=== PATIENT | male | born 1990 | race African-American/Black ===

== ENCOUNTER 2017-09-28 15:46 | Emergency (ER) | payer OTHER ==
[~2017-09-28] VITALS: Ht 188 cm; Wt 85.0 kg
[~2017-09-28 15:46] MED LIST: METO25 PO
[2017-09-28 16:02] VITALS: BP 147/97; PULSE 128; RESP 18; TEMP 98.1; O2SAT 97
[2017-09-28 16:05] VITALS: BP 146/102; PULSE 134; RESP 20; O2SAT 100
[2017-09-28] MEDS ORDERED: SODIUM CHLORIDE 0.9% FLUSH 10 ML FLUSH IVF PRN (16:15)
[2017-09-28] MEDS ORDERED: MORPHINE SULFATE 4 MG/ML INJ IV PUSH ONE (16:15)
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
[2017-09-28] MEDS ORDERED: ONDANSETRON HCL 4 MG/5 ML UDC PO ONE (16:30)
[2017-09-28 16:58] LABS: AUTOMATED NEUTROPHIL # 3.6 TH/MM3 (1.8-7.7); BASOPHIL % 0.2 % (0.0-2.0); EOSINOPHIL % 0.8 % (0.0-4.0); HEMATOCRIT 39.2 % (39.0-51.0); HEMOGLOBIN 13.5 GM/DL (13.0-17.0); LYMPH % 22.2 % (9.0-44.0); LYMPHOCYTE # 1.2 TH/MM3 (1.0-4.8); MEAN CELL VOLUME 71.4 FL (80.0-100.0); MEAN CORPUSCULAR HEMOGLOBIN 24.7 PG (27.0-34.0); MEAN CORPUSCULAR HGB CONC 34.6 % (32.0-36.0); MEAN PLATELET VOLUME 8.5 FL (7.0-11.0); MONO % 9.4 % (0.0-8.0); MONOCYTE # 0.5 TH/MM3 (0-0.9); NEUT % 67.4 % (16.0-70.0); PLATELET COUNT 262 TH/MM3 (150-450); RED BLOOD COUNT 5.49 MIL/MM3 (4.50-5.90); RED CELL DISTRIBUTION WIDTH 13.3 % (11.6-17.2); WHITE BLOOD COUNT 5.4 TH/MM3 (4.0-11.0)
[2017-09-28 17:21] LABS: ALBUMIN 3.8 GM/DL (3.4-5.0); AST (GOT) 18 U/L (15-37); BLOOD UREA NITROGEN 13 MG/DL (7-18); CALCIUM 8.8 MG/DL (8.5-10.1); CHLORIDE 107 MEQ/L (98-107); GLOMERULAR FILTRATION RATE 109 ML/MIN (>89); GLUCOSE,RANDOM 127 MG/DL (74-106); SODIUM (NA) 141 MEQ/L (136-145)
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
[2017-09-28 17:25] LABS: ALKALINE PHOSPHATASE 130 U/L (45-117); ALT (GPT) 29 U/L (12-78); TOTAL BILIRUBIN ADULT 0.6 MG/DL (0.2-1.0); TOTAL PROTEIN 7.3 GM/DL (6.4-8.2)
[2017-09-28 17:34] VITALS: BP 167/88; PULSE 127; RESP 24; O2SAT 97
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
[2017-09-28] MEDS ORDERED: KETOROLAC TROMETHAMINE 30 MG/ML (IVP) VIAL IV PUSH ONE (17:45)
[2017-09-28 18:01] VITALS: BP 157/84; PULSE 121; RESP 16; O2SAT 98
[2017-09-28] MEDS ORDERED: CYCL10TA PO (18:17)
[2017-09-28] MEDS ORDERED: HYDR-3516 PO (18:17)
[2017-09-28] MEDS ORDERED: IBUP-232 PO (18:17)
[2017-09-28 18:23] LABS: BILIRUBIN, URINE NEG (NEG); BLOOD, URINE NEG (NEG); GLUCOSE,URINE NEG (NEG); HYALINE CAST, URINE 135 /lpf (RARE); KETONE, URINE NEG (NEG); MUCUS URINE MOD /lpf (OCC); NITRITE,URINE NEG (NEG); URINE COLOR YELLOW (YELLW/STRAW); URINE LEUKOCYTE ESTERASE NEG (NEG)
[2017-09-28 18:46] VITALS: BP 138/82; PULSE 122; RESP 18; O2SAT 100
== END 2017-09-28 19:05 | disposition home or self-care (01) ==
LOC: NEPD 15:46
DX: M25.551 Pain in right hip (principal); M62.838 Other muscle spasm; M54.5 Low back pain; V13.9XXA Unspecified pedal cyclist injured in collision with car, pick-up truck or van in traffic accident, initial encounter; Y93.55 Activity, bike riding; E07.9 Disorder of thyroid, unspecified; I10 Essential (primary) hypertension
CPT/HCPCS: 71045; 72100; 72170; 73552; 80053; 81001; 85025; 96374; 96375; 99284; J1885; J2270